=== PATIENT | male | born 1950 | race Caucasian/White ===

== ENCOUNTER → 2020-03-30 | Outpatient (CLI) | payer MEDICARE ==
[~2020-03-30] MED LIST: IOPAMIDOL 370 MG/ML 200 ML INFUS..BTL INJ ONE; SODIUM CHLORIDE 0.9% 100 ML ONE
[2020-03-30 16:04] LABS: BLOOD UREA NITROGEN 17 mg/dL (7-26); BUN/CREATININE RATIO 22 (6-25); CREATININE, SERUM 0.79 mg/dL (0.72-1.25); EST GLOMERULAR FILTRATION RATE > 60 ML/MIN (60-)
--- NOTE | 2020-04-02 15:53 | Diagnostic Imaging Report ---
Left upper extremity CTA WITH IV CONTRAST. INDICATION: Evaluate for peripheral vascular disease. Shoulder weakness. COMPARISON: None. TECHNIQUE: The left upper and 72 was scanned utilizing a multidetector helical scanner from the aortic arch to the hand after administration of IV contrast. Coronal and sagittal reformations were obtained. 3D post-processing of the images was performed, and the post-processed images were used in interpretation. CTA protocol was performed. IV CONTRAST: 100mL of Isovue 370 ORAL CONTRAST: None RADIATION DOSE: Total DLP: 168 mGy*cm FINDINGS: VESSELS: Aortic arch is of normal caliber without significant atherosclerotic disease. Direct origin of the left vertebral artery from the aortic arch is noted. Common carotid and internal carotid arteries are of normal caliber without significant atherosclerotic disease. Bilateral jugular veins are patent. SVC is patent. Pulmonary artery is of normal caliber. The left subclavian artery is occluded just beyond its origin and reconstituted via collateral vessels, supplied by either the thyrocervical or costocervical trunks. Remainder of the left subclavian and left axillary artery is patent without high-grade stenosis or significant atherosclerotic disease. Brachial artery is unremarkable. Bifurcation into the radial and ulnar arteries along with the origin of the neural osseous artery are visualized without high-grade stenosis. Beyond the bifurcation distally into the forearm the vessels are not well opacified, likely due to poor contrast opacification. Mid to distal radial and ulnar arteries are not well-visualized. NON-VASCULAR: Moderate emphysematous changes are noted in the visualized lung apices. No upper mediastinal or left axillary adenopathy is noted. Visualized soft tissues of the chest, neck and head are unremarkable. Visualized brain parenchyma is unremarkable. Dural venous sinuses are patent. Orbits are unremarkable. Soft tissues of the left upper extremity are unremarkable. Visualized osseous structures are grossly intact. Paranasal sinuses and mastoid air cells are well pneumatized. Glenohumeral joint space does not demonstrate significant degenerative change. Mild degenerative change of the left leon clavicular joint is noted. IMPRESSION: 1. 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 Remainder of the distal subclavian artery, axillary artery and brachial artery are unremarkable. Normal bifurcation into the radial and ulnar arteries. Mid to distal radial and ulnar arteries are not well opacified. 2. Moderate emphysematous changes of the lung apices. Signed by: Tim Andrade MD on 04/02/2020 3:50 PM
== END ==
LOC: CT 14:58
PROVIDERS: ATTEND Internal Medicine
DX: I73.9 Peripheral vascular disease, unspecified (principal)
CPT/HCPCS: 36415; 73206; 82565; 84520; J7050; Q9967

== ENCOUNTER → 2020-10-04 | Outpatient (CLI) | payer MEDICARE | LOC: CT 09:09 | PROVIDERS: ATTEND Internal Medicine | DX: J94.2 Hemothorax (principal) | CPT/HCPCS: 71250 ==